=== PATIENT | male | born 1985 | race Caucasian/White ===

== ENCOUNTER → 2016-12-12 | Outpatient (CLI) | payer OTHER ==
[~2016-12-12] MED LIST: LISINOPRIL 20MG20 MG PO
[2016-12-12 13:33] LABS: HEMOGLOBIN 15.2 g/dL (14.1-18.0); LYMPH # 2.2 K/mm3 (0.7-4.5); LYMPH % 29.2 % (10-50)
[2016-12-12 13:45] LABS: BUN 11 mg/dL (7-18)
[2016-12-12 13:48] LABS: GFR (ESTIMATED) 88 ML/MIN (>60)
[2016-12-14 08:46] LABS: Vitamin B12 284 pg/mL (211-946)
[2016-12-15 18:36] LABS: Free Testosterone(Direct) 5.3 pg/mL (9.3-26.5)
[2016-12-20 20:36] LABS: Testosterone, Total, LC/MS 237.5 ng/dL (264.0-916.0)
== END ==
LOC: CARL-LAB 11:20
PROVIDERS: Nurse Practitioner Family
DX: I10 Essential (primary) hypertension (principal); R53.83 Other fatigue